=== PATIENT | female | born 1990 | race Caucasian/White ===

== ENCOUNTER 2017-10-13 09:24 | Emergency (ER) | payer OTHER, MEDICAID ==
[~2017-10-13] VITALS: Ht 160 cm; Wt 99.3 kg
[~2017-10-13 09:24] MED LIST: DIFLUCAN150 M1 PO; FLAGYL500 MG PO; NOHOMEMEDICATIONS; NORCO 5-325 TA1 EACH PO; TRINATE TABLET1 TAB PO; ZPAK PO
[2017-10-13] MEDS ORDERED: KEFLEX500 M1 PO (10:05)
[2017-10-13] MEDS ORDERED: HYDROCORTISO28.35 G1 TOP (10:05)
[2017-10-13 10:13] VITALS: BP 115/70
== END 2017-10-13 10:15 | disposition home or self-care (01) ==
LOC: M.ERS 09:24
DX: O26.893 Other specified pregnancy related conditions, third trimester (principal); S90.862A Insect bite (nonvenomous), left foot, initial encounter; S90.861A Insect bite (nonvenomous), right foot, initial encounter; E11.9 Type 2 diabetes mellitus without complications; Z3A.38 38 weeks gestation of pregnancy; W57.XXXA Bitten or stung by nonvenomous insect and other nonvenomous arthropods, initial encounter; Y93.89 Activity, other specified; Y92.89 Other specified places as the place of occurrence of the external cause; Y99.8 Other external cause status

== ENCOUNTER 2019-02-17 11:02 | Emergency (ER) | payer OTHER, MEDICAID ==
[~2019-02-17] VITALS: Ht 160 cm; Wt 90.7 kg
[~2019-02-17 11:02] MED LIST changes: +HYDROCORTISO28.35 G1 TOP; +KEFLEX500 M1 PO
[2019-02-17 11:30] LABS: URINE BILIRUBIN NEGATIVE (Negative); URINE BLOOD TRACE (Negative); URINE CLARITY SL CLOUDY; URINE COLOR YELLOW; URINE GLUCOSE-RANDOM TRACE (Negative); URINE KETONES TRACE (Negative); URINE LEUKOCYTES-REFLEX TRACE (Negative); URINE NITRITE-REFLEX NEGATIVE (Negative); URINE PROTEIN NEGATIVE (Negative); URINE SPECIFIC GRAVITY >= 1.030 (1.005-1.030); URINE UROBILINOGEN 0.2 E.U./dl (0.2-1.0)
[2019-02-17 11:37] LABS: SQUAMOUS >10 Many /LPF (0-3)
[2019-02-17 11:38] LABS: BACTERIA-REFLEX >30 Many /HPF (None Seen); CASTS None Seen /LPF (None Seen); CRYSTALS None Seen /LPF (None Seen); MUCUS >6 Heavy strn/LPF (None Seen); URINE RBC 3-10 Few /HPF (0-2); URINE WBC-REFLEX 6-15 Few /HPF (0-5)
[2019-02-17] MEDS ORDERED: DIFLUCAN150 MG PO (11:55)
[2019-02-17] MEDS ORDERED: DOXYCYCLINE 10100 MG PO (11:55)
[2019-02-17 12:21] VITALS: BP 133/84
== END 2019-02-17 12:23 | disposition home or self-care (01) ==
LOC: M.ERS 11:02
PROVIDERS: Physician Assistant
DX: B37.9 Candidiasis, unspecified (principal); N39.0 Urinary tract infection, site not specified; N89.8 Other specified noninflammatory disorders of vagina; E11.9 Type 2 diabetes mellitus without complications

== ENCOUNTER 2019-07-09 15:13 | Emergency (ER) | payer OTHER, MEDICAID ==
[~2019-07-09] VITALS: Ht 160 cm; Wt 81.2 kg
[~2019-07-09 15:13] MED LIST changes: +DIFLUCAN150 MG PO; +DOXYCYCLINE 10100 MG PO
[2019-07-09 16:05] LABS: URINE BILIRUBIN NEGATIVE (Negative); URINE BLOOD TRACE (Negative); URINE CLARITY CLEAR; URINE COLOR YELLOW; URINE GLUCOSE-RANDOM 3+ (Negative); URINE KETONES 1+ (Negative); URINE LEUKOCYTES-REFLEX NEGATIVE (Negative); URINE NITRITE-REFLEX NEGATIVE (Negative); URINE PROTEIN NEGATIVE (Negative); URINE SPECIFIC GRAVITY >= 1.030 (1.005-1.030); URINE UROBILINOGEN 0.2 E.U./dl (0.2-1.0)
[2019-07-09 16:14] LABS: AMP/METHAMP Negative (Negative); BARBITURATES Negative (Negative); BENZODIAZEPINES Negative (Negative); COCAINE Negative (Negative); METHADONE Negative (Negative); OPIATES Negative (Negative); PCP Negative (Negative); THC POSITIVE (Negative)
[2019-07-09 16:20] LABS: ABSOLUTE BASOPHILS 0.1 thou/uL (0.0-0.2); ABSOLUTE LYMPHOCYTES 2.3 thou/uL (0.8-5.3); ABSOLUTE MONOCYTES 0.5 thou/uL (0.0-1.2); ABSOLUTE NEUTROPHILS 6.5 thou/uL (1.6-8.1); BASOPHILS 0.8 %; EOSINOPHILS 0.3 %; HEMATOCRIT 42.2 % (37.0-47.0); HEMOGLOBIN 14.9 gm/dL (12.0-15.0); LYMPHOCYTES 24.9 %; MCHC 35.2 g/dL (28.0-37.0); MCV 85.1 fL (80.0-100.0); MONOCYTES 4.8 %; NUCLEATED RBCS 0 /100WBC; PLATELET COUNT* 273 thou/uL (150-400); POLYS 69.2 %; RBC 4.96 mil/uL (4.20-5.00); RDW-CV 12.8 % (10.5-14.5); WBC 9.3 thou/uL (4.0-11.0)
[2019-07-09 16:27] LABS: CALCIUM 8.8 mg/dL (8.5-10.1); CREATININE 0.8 mg/dL (0.6-1.3); POTASSIUM 3.4 mmol/L (3.5-5.1)
[2019-07-09 16:32] LABS: ALBUMIN 3.7 g/dL (3.4-5.0); TOTAL BILIRUBIN 0.5 mg/dL (<0.1-1.0); TOTAL PROTEIN 7.4 g/dL (6.4-8.2)
[2019-07-09 16:39] LABS: SALICYLATE < 2.8 mg/dL (2.8-20.0)
[2019-07-09 16:42] LABS: ACETAMINOPHEN < 2 ug/mL (10-30); ALCOHOL < 10 mg/dL (<10)
[2019-07-09 17:15] VITALS: BP 136/82
== END 2019-07-09 17:15 | disposition home or self-care (01) ==
LOC: M.ERS 15:13
PROVIDERS: Emergency Medicine
DX: F30.9 Manic episode, unspecified (principal); F12.10 Cannabis abuse, uncomplicated; E11.9 Type 2 diabetes mellitus without complications; G47.00 Insomnia, unspecified

== ENCOUNTER 2019-12-12 12:25 | Emergency (ER) | payer OTHER, MEDICAID ==
[~2019-12-12] VITALS: Ht 243.8 cm; Wt 78.5 kg
[2019-12-12] MEDS ORDERED: METFORMIN HCL500 M3 PO (12:45)
[2019-12-12 12:57] LABS: URINE BILIRUBIN NEGATIVE (Negative); URINE BLOOD TRACE (Negative); URINE CLARITY CLEAR; URINE COLOR YELLOW; URINE GLUCOSE-RANDOM NEGATIVE (Negative); URINE KETONES NEGATIVE (Negative); URINE LEUKOCYTES TRACE (Negative); URINE NITRITE NEGATIVE (Negative); URINE PROTEIN NEGATIVE (Negative); URINE SPECIFIC GRAVITY >= 1.030 (1.005-1.030); URINE UROBILINOGEN 0.2 E.U./dl (0.2-1.0)
[2019-12-12 13:03] LABS: SQUAMOUS 0-3 Few /LPF (0-3); URINE RBC 3-10 Few /HPF (0-2); URINE WBC 6-15 Few /HPF (0-5)
[2019-12-12 13:04] LABS: CASTS None Seen /LPF (None Seen); CRYSTALS None Seen /LPF (None Seen); MUCUS 0-3 Light strn/LPF (None Seen)
[2019-12-12] MEDS ORDERED: BACTRIM DS TAB1 EACH PO (13:11)
[2019-12-12] MEDS ORDERED: DIFLUCAN150 MG PO (13:11)
[2019-12-12 13:18] VITALS: BP 116/73
== END 2019-12-12 13:19 | disposition home or self-care (01) ==
LOC: M.ERS 12:25
PROVIDERS: Physician Assistant
DX: N39.0 Urinary tract infection, site not specified (principal); B37.3 Candidiasis of vulva and vagina; E11.9 Type 2 diabetes mellitus without complications; F17.210 Nicotine dependence, cigarettes, uncomplicated